=== PATIENT | male | born 1940 | race Caucasian/White ===

== ENCOUNTER 2022-04-19 16:09 | Outpatient (CLI) | payer MEDICARE, SELFPAY ==
[2022-04-19 12:31] LABS: Albumin* 4.4 g/dL (3.3-5.0)
[2022-04-19 12:32] LABS: Chloride* 106 mmol/L (96-114); Potassium* 4.7 mmol/L (3.6-5.1); Sodium* 142 mmol/L (135-149)
[2022-04-19 12:34] LABS: Bilirubin Total* 1.1 mg/dL (0.1-1.5); Carbon Dioxide* 29 mmol/L (20-32); Cholesterol* 154 mg/dL (90-199); Creatinine* 1.2 mg/dL (0.5-1.5); Estimated Glomerular Filt Rate 60 ml/min
[2022-04-19 12:35] LABS: Alanine Aminotransferase* 25 U/L (4-50); Alkaline Phosphatase* 98 U/L (40-150); Aspartate Amino Transferase* 39 U/L (12-35); Blood Urea Nitrogen* 23 mg/dL (7-30); Calcium* 9.2 mg/dL (8.4-10.6); Glucose* 83 mg/dL (60-115); HDL Cholesterol* 55 mg/dL (>=40); LDL Cholesterol Calculated 84 mg/dL (<100); Total Protein* 7.3 g/dL (6.0-8.3); Triglycerides* 76 mg/dL (40-149)
== END 2022-04-19 16:10 | disposition home or self-care (01) ==
PROVIDERS: PCP Family Medicine; Visit Provider Family Medicine
DX: Z00.00 Encounter for general adult medical examination without abnormal findings (principal); E78.5 Hyperlipidemia, unspecified
CPT/HCPCS: 80053; 80061

== ENCOUNTER 2023-07-01 08:00 | Outpatient (CLI) | payer MEDICARE, SELFPAY | END 2023-07-01 08:01 | disposition home or self-care (01) | LOC: NFLDREF 07-16 13:02 | PROVIDERS: PCP Family Medicine; Referring Provider Family Medicine; Visit Provider Family Medicine | DX: E78.5 Hyperlipidemia, unspecified (principal); Z13.228 Encounter for screening for other metabolic disorders | CPT/HCPCS: 80053; 80061 ==

== ENCOUNTER 2024-07-01 07:48 | Outpatient (CLI) | payer MEDICARE, SELFPAY | END 2024-07-01 07:49 | disposition home or self-care (01) | LOC: NFLDREF 07-02 09:30 | PROVIDERS: PCP Family Medicine; Referring Provider Family Medicine; Visit Provider Family Medicine | DX: E78.5 Hyperlipidemia, unspecified (principal); Z12.5 Encounter for screening for malignant neoplasm of prostate | CPT/HCPCS: 80053; 80061; G0103 ==